=== PATIENT | female | born 1990 | race Two or more races ===

== ENCOUNTER 2019-09-26 02:29 | Inpatient (IN) | payer BC ==
[~2019-09-26] VITALS: Ht 175.3 cm; Wt 121.8 kg
[~2019-09-26 02:29] MED LIST: IBUP-1222 PO; OXYC-302 PO
[2019-09-26] MEDS ORDERED: MISOPROSTOL 200 MCG TABLET ONE (02:33)
[2019-09-26] MEDS ORDERED: LIDOCAINE 1%, 20ML ONE (02:33)
[2019-09-26] MEDS ORDERED: LACTATED RINGERS 1,000 ML IV SCH (02:34)
[2019-09-26] MEDS ORDERED: D5%-LACTATED RINGERS 1,000 ML IV SCH (02:34)
[2019-09-26] MEDS ORDERED: OXYTOCIN 30U/ 0.9% NaCL 500ML 500 ML IV ONE (02:34)
[2019-09-26] MEDS ORDERED: OXYTOCIN 30U/ 0.9% NaCL 500ML 500 ML ONE ×2 (02:34→09:18)
[2019-09-26] MEDS ORDERED: OXYTOCIN 30U/ 0.9% NaCL 500ML 500 ML IV PRN (02:34)
[2019-09-26] MEDS ORDERED: FENTANYL/BUPIV./NS/PF 250 ML EPIDCONT SCH ×2 (02:38→03:52)
[2019-09-26] MEDS: LACTATED RINGERS 1,000 ML IV SCH ×6 (02:38→19:52)
[2019-09-26 03:00] VITALS: BP 133/82
[2019-09-26] MEDS ORDERED: ONDANSETRON 2MG/ML, 2ML IVPush PRN (03:00)
[2019-09-26] MEDS ORDERED: FENTANYL PF 100 MCG/2ML IV PRN (03:00)
[2019-09-26] MEDS ORDERED: TERBUTALINE 1 MG/ML, 1ML SQ PRN (03:00)
[2019-09-26] MEDS ORDERED: TERBUTALINE 1 MG/ML, 1ML IVPush PRN (03:00)
[2019-09-26] MEDS ORDERED: LACTATED RINGERS 1,000 ML IVBOLUS PRN ×2 (03:00→04:00)
[2019-09-26] MEDS ORDERED: CALCIUM CARBONATE 500 MG TAB.CHEW PO PRN (03:00)
[2019-09-26] MEDS ORDERED: EPHEDRINE 50 MG/ML, 1ML IVPush PRN ×2 (03:00→04:00)
[2019-09-26] MEDS ORDERED: FENTANYL PF 100 MCG/2ML IVPush PRN (03:00)
[2019-09-26 03:24] LABS: BASOPHILS # (AUTO) 0.05 x10^3/uL (0-0.1); BASOPHILS % (AUTO) 1 % (0-1); EOSINOPHILS # (AUTO) 0.16 x10^3/uL (0-0.4); EOSINOPHILS % (AUTO) 2 % (1-7); LYMPHOCYTES # (AUTO) 2.31 x10^3/uL (1-3.4); LYMPHOCYTES % (AUTO) 22 % (22-44); MD NO; MEAN CORPUSCULAR HEMOGLOBIN 28.4 pg (27.0-34.8); MEAN CORPUSCULAR HGB CONC 32.2 g/dL (32.4-35.8); MEAN PLATELET VOLUME 10.6 fL (7.4-10.4); MONOCYTES # (AUTO) 0.71 x10^3/uL (0.2-0.8); MONOCYTES % (AUTO) 7 % (2-9); NEUTROPHILS # (AUTO) 7.11 x10^3/uL (1.8-6.8); NEUTROPHILS % (AUTO) 69 % (42-75); PLATELET COUNT 232 x10^3/uL (130-400); RED BLOOD COUNT 4.75 x10^6/uL (3.82-5.3); RED CELL DISTRIBUTION WIDTH 13.8 % (9.6-15.2)
[2019-09-26] MEDS ORDERED: FENTANYL/BUPIV./NS/PF 250 ML EPIDCONT ONE ×2 (03:25→03:56)
[2019-09-26] MEDS ORDERED: BUPIVACAINE 0.25% ONE ×2 (03:54→03:56)
[2019-09-26] MEDS ORDERED: NALOXONE 0.4 MG/ML, 1ML IVPush PRN (04:00)
[2019-09-26] MEDS ORDERED: IBUPROFEN 600 MG TABLET ONE (09:17)
[2019-09-26] MEDS ORDERED: PRENATAL VIT/IRON/FA 1 EACH TABLET ONE (09:18)
[2019-09-26] MEDS: OXYTOCIN 30U/ 0.9% NaCL 500ML 500 ML IV SCH ×2 (09:19→19:13)
[2019-09-26] MEDS: PRENATAL VIT/IRON/FA 1 EACH TABLET PO SCH (09:20)
[2019-09-26] MEDS: IBUPROFEN 600 MG TABLET PO PRN ×3 (09:20→23:09)
[2019-09-26] MEDS ORDERED: OXYcodone IR 5MG TABLET PO PRN ×2 (09:30)
[2019-09-26] MEDS ORDERED: ACETAMINOPHEN 325 MG TABLET PO PRN ×2 (09:30)
[2019-09-26] MEDS ORDERED: CARBOPROST TROMETHAMINE 250 MCG/ML, 1ML IM PRN (09:30)
[2019-09-26] MEDS ORDERED: HYDROcodone/APAP 5/325 TABLET PO PRN ×2 (09:30)
[2019-09-26] MEDS ORDERED: SIMETHICONE 80 MG CHEW TAB PO PRN (09:30)
[2019-09-26] MEDS ORDERED: MISOPROSTOL 200 MCG TABLET PR PRN (09:30)
[2019-09-26] MEDS ORDERED: OXYcodone/APAP 5/325MG TABLET PO PRN ×2 (09:30)
[2019-09-26] MEDS ORDERED: METHYLERGONOVINE 0.2 MG/ML IM PRN (09:30)
[2019-09-26 11:00] VITALS: BP 114/75
[2019-09-26 16:00] VITALS: BP 117/78
[2019-09-26 16:54] LABS: BASOPHILS # (AUTO) 0.04 x10^3/uL (0-0.1); BASOPHILS % (AUTO) 0 % (0-1); EOSINOPHILS % (AUTO) 1 % (1-7); LYMPHOCYTES # (AUTO) 1.87 x10^3/uL (1-3.4); LYMPHOCYTES % (AUTO) 19 % (22-44); MD SCAN; MEAN CORPUSCULAR HEMOGLOBIN 28.6 pg (27.0-34.8); MEAN PLATELET VOLUME 10.4 fL (7.4-10.4); MONOCYTES # (AUTO) 0.63 x10^3/uL (0.2-0.8); MONOCYTES % (AUTO) 6 % (2-9); NEUTROPHILS # (AUTO) 7.25 x10^3/uL (1.8-6.8); NEUTROPHILS % (AUTO) 73 % (42-75); PLATELET COUNT 204 x10^3/uL (130-400); RED BLOOD COUNT 4.15 x10^6/uL (3.82-5.3); RED CELL DISTRIBUTION WIDTH 13.7 % (9.6-15.2)
[2019-09-26 19:35] VITALS: BP 104/71
[2019-09-26] MEDS: DOCUSATE 100 MG CAPSULE PO PRN (23:09)
[2019-09-26 23:10] VITALS: BP 113/71
[2019-09-27] MEDS: LACTATED RINGERS 1,000 ML IV SCH ×2 (02:38→03:52)
[2019-09-27 04:00] VITALS: BP 94/62
[2019-09-27] MEDS: OXYTOCIN 30U/ 0.9% NaCL 500ML 500 ML IV SCH (05:13)
[2019-09-27] MEDS: DOCUSATE 100 MG CAPSULE PO PRN ×2 (07:15→20:31)
[2019-09-27] MEDS: IBUPROFEN 600 MG TABLET PO PRN ×2 (07:15→20:30)
[2019-09-27] MEDS: PRENATAL VIT/IRON/FA 1 EACH TABLET PO SCH (07:16)
[2019-09-27 07:40] VITALS: BP 112/75
[2019-09-27 20:00] VITALS: BP 96/64
[2019-09-28 07:27] VITALS: BP 115/78
[2019-09-28] MEDS: DOCUSATE 100 MG CAPSULE PO PRN (07:47)
[2019-09-28] MEDS: PRENATAL VIT/IRON/FA 1 EACH TABLET PO SCH (07:47)
[2019-09-28] MEDS: IBUPROFEN 600 MG TABLET PO PRN (07:47)
== END 2019-09-28 17:15 | disposition home or self-care (01) | DRG 807 ==
LOC: LDOP 02:29 → LDIP 02:34 → 2NW 10:46
PROVIDERS: ADMIT Obstetrics & Gynecology; ATTEND Obstetrics & Gynecology
PROC: 10E0XZZ Delivery of Products of Conception, External Approach (ICD-10-PCS; principal; 2019-09-26)
DX: O69.1XX0 Labor and delivery complicated by cord around neck, with compression, not applicable or unspecified (principal); Z37.0 Single live birth; O62.0 Primary inadequate contractions; Z3A.39 39 weeks gestation of pregnancy
CPT/HCPCS: 36415; 85025; 86592; 86850; 86900; 87635; G0378; J3490; J2590; J3010; J7120